=== PATIENT | male | born 2000 | race African-American/Black ===

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

== ENCOUNTER 2023-05-26 15:11 | Emergency (ER) | payer MEDICAID, OTHER ==
[2023-05-26 15:27] VITALS: PULSE 87
== END 2023-05-26 20:39 | disposition left against medical advice (07) ==
LOC: ER 15:11
DX: M54.50 Low back pain, unspecified (principal); Z53.21 Procedure and treatment not carried out due to patient leaving prior to being seen by health care provider

== ENCOUNTER 2023-06-04 07:00 | Emergency (ER) | payer MEDICAID, OTHER ==
[~2023-06-04] VITALS: Ht 175.3 cm; Wt 90.0 kg
[2023-06-04 07:22] VITALS: O2SAT 96
[2023-06-04] MEDS ORDERED: IBUPROFEN 400MG TABLET PO ONE (08:45)
[2023-06-04] MEDS ORDERED: CEFTRIAXONE SODIUM 500MG VIAL IM ONE (08:45)
[2023-06-04] MEDS ORDERED: ACETAMINOPHEN 325MG TABLET PO ONE (08:45)
[2023-06-04] MEDS ORDERED: LIDOCAINE 5% PATCH TOP SCH (08:45)
[2023-06-04 09:11] VITALS: BP 127/79; PULSE 77; RESP 20; TEMP 97.9
[2023-06-04 09:11] LABS: CLARITY URINE CLEAR (CLEAR); COLOR URINE YELLOW (YELLOW); GLUCOSE URINE NEGATIVE (NEGATIVE); KETONES URINE NEGATIVE (NEGATIVE); LEUKOCYTE ESTERASE URINE 1+ (NEGATIVE); NITRITE URINE NEGATIVE (NEGATIVE); OCCULT BLOOD URINE NEGATIVE (NEGATIVE); PROTEIN URINE NEGATIVE (NEGATIVE); SPECIFIC GRAVITY URINE 1.026 (1.005-1.030)
[2023-06-04 09:23] LABS: SQUAMOUS EPITHELIAL CELL URINE FEW /lpf (RARE/1+)
[2023-06-04 09:29] LABS: WBC URINE 25-50 /hpf (0-2)
[2023-06-04 09:30] LABS: BACTERIA URINE TRACE; RBC URINE NONE SEEN /hpf (0-2)
[2023-06-04] MEDS ORDERED: DOXY100C5 MT (09:40)
[2023-06-08 04:07] LABS: CHLAMYDIA TRACHOMATIS NAA Positive (Negative); NEISSERIA GONORRHOEAE NAA Negative (Negative)
== END 2023-06-04 10:25 | disposition home or self-care (01) ==
LOC: ER 07:00
DX: M54.50 Low back pain, unspecified (principal); R30.0 Dysuria
CPT/HCPCS: 99284; 87491; 87591; 81003; 87086; 96372; J0696

== ENCOUNTER 2023-07-30 07:46 | Emergency (ER) | payer MEDICAID, OTHER ==
[~2023-07-30 07:46] MED LIST: DOXY100C5 MT
[2023-07-30] MEDS: CEFTRIAXONE SODIUM 500MG VIAL IM ONE (08:15)
[2023-07-30] MEDS: DOXYCYCLINE HYCLATE 100MG CAPSULE PO ONE (08:15)
[2023-07-30 08:51] LABS: CLARITY URINE CLEAR (CLEAR); COLOR URINE YELLOW (YELLOW); GLUCOSE URINE NEGATIVE (NEGATIVE); KETONES URINE NEGATIVE (NEGATIVE); LEUKOCYTE ESTERASE URINE NEGATIVE (NEGATIVE); NITRITE URINE NEGATIVE (NEGATIVE); OCCULT BLOOD URINE NEGATIVE (NEGATIVE); PROTEIN URINE NEGATIVE (NEGATIVE); SPECIFIC GRAVITY URINE 1.027 (1.005-1.030); UROBILINOGEN URINE 0.2 E.U./dL (0.2-1.0)
[2023-07-30] MEDS ORDERED: DOXY100C5 MT (08:55)
[2023-07-30 09:12] VITALS: BP 113/82; PULSE 73; RESP 16
[2023-08-03 04:09] LABS: CHLAMYDIA TRACHOMATIS NAA Positive (Negative); NEISSERIA GONORRHOEAE NAA Negative (Negative)
== END 2023-07-30 09:18 | disposition home or self-care (01) ==
LOC: ER 07:46
DX: R30.0 Dysuria (principal)
CPT/HCPCS: 99283; 87491; 87591; 81003; 96372; J0696

== ENCOUNTER 2023-09-16 14:17 | Emergency (ER) | payer MEDICAID, OTHER ==
[~2023-09-16] VITALS: Ht 175.3 cm; Wt 903.0 kg
[2023-09-16 14:19] VITALS: BP 125/78; PULSE 74; RESP 18; TEMP 98.7; O2SAT 99
== END 2023-09-16 19:16 | disposition left against medical advice (07) ==
LOC: ER 14:17
DX: R51.9 Headache, unspecified (principal); Z53.21 Procedure and treatment not carried out due to patient leaving prior to being seen by health care provider

== ENCOUNTER 2024-11-06 23:32 | Emergency (ER) | payer MEDICAID ==
[~2024-11-06] VITALS: Ht 175.3 cm; Wt 97.0 kg
[2024-11-06 23:43] VITALS: TEMP 36.8; O2SAT 99
[2024-11-07] MEDS: LIDOCAINE HCL/PF 1% 10 MG/ML 5ML VIAL INFIL ONE (02:45)
[2024-11-07] MEDS: BACITRACIN ZINC OINT UDPKT TOP ONE (02:45)
[2024-11-07 03:02] VITALS: TEMP 98.3
[2024-11-07] MEDS: TETANUS, DIPHTHERIA, PERTUSSIS VAC/PF 0.5ML (>10YR OLD) IM ONE (03:02)
[2024-11-07] MEDS: ACETAMINOPHEN 325MG TABLET PO ONE (03:02)
[2024-11-07] MEDS ORDERED: BO1 TP (04:09)
[2024-11-07 04:20] VITALS: BP 115/74; PULSE 72; RESP 18; O2SAT 100
== END 2024-11-07 04:23 | disposition home or self-care (01) ==
LOC: ER 23:32
DX: S61.412A Laceration without foreign body of left hand, initial encounter (principal); Z79.899 Other long term (current) drug therapy; X58.XXXA Exposure to other specified factors, initial encounter; Y93.89 Activity, other specified; Y92.89 Other specified places as the place of occurrence of the external cause; Y99.8 Other external cause status
CPT/HCPCS: 12002; 99283; 90715; 90471; J2003; Z7610

== ENCOUNTER 2024-11-23 12:26 | Emergency (ER) | payer MEDICAID ==
[~2024-11-23] VITALS: Ht 177.8 cm; Wt 91.0 kg
[~2024-11-23 12:26] MED LIST changes: +BO1 TP
[2024-11-23 12:31] VITALS: TEMP 37.1; O2SAT 100
[2024-11-23 13:03] LABS: CLARITY URINE CLEAR (CLEAR); COLOR URINE YELLOW (YELLOW); GLUCOSE URINE NEGATIVE (NEGATIVE); KETONES URINE NEGATIVE (NEGATIVE); LEUKOCYTE ESTERASE URINE NEGATIVE (NEGATIVE); NITRITE URINE NEGATIVE (NEGATIVE); OCCULT BLOOD URINE NEGATIVE (NEGATIVE); PH URINE 7.5 (4.5-8.0); PROTEIN URINE NEGATIVE (NEGATIVE); SPECIFIC GRAVITY URINE 1.027 (1.005-1.030); UROBILINOGEN URINE 1.0 E.U./dL (0.2-1.0)
[2024-11-23] MEDS: DOXYCYCLINE HYCLATE 100MG CAPSULE PO ONE (13:31)
[2024-11-23] MEDS: CEFTRIAXONE SODIUM 500MG VIAL IM ONE (13:31)
[2024-11-23 13:40] VITALS: BP 126/81; PULSE 69; RESP 18; O2SAT 100
== END 2024-11-23 13:45 | disposition home or self-care (01) ==
LOC: ER 12:26
DX: R30.9 Painful micturition, unspecified (principal)
CPT/HCPCS: 81003; 96372; 99283; J0696; Z7610